=== PATIENT | female | born 1945 | race Caucasian/White ===

== ENCOUNTER 2019-08-11 03:57 | Emergency (ER) | payer MEDICARE ==
[~2019-08-11] VITALS: Ht 157.4 cm; Wt 63.5 kg
[~2019-08-11 03:57] MED LIST: ANAPROX DS550 MG PO; B/P MED; CHOLESTEROL M; HYDROCODONE BIT1 T11 PO; NEURONTIN300 MG PO; ZOFRAN ODT4 MG SL; ZOLOFT50 MG PO; ZOVIRAX800 MG PO
[2019-08-11 05:16] LABS: BASO % 0.2 % (0.0-1.0); EOS % 0.2 % (1.0-4.0); HEMATOCRIT 37.9 % (37.0-47.0); HEMOGLOBIN 11.8 g/dl (12.0-16.0); LYMPH # 0.7 10*3/uL (1.3-4.4); LYMPH % 5.5 % (27.0-41.0); MEAN CORPUSCULAR HGB 24.9 pg (27.0-31.0); MEAN CORPUSCULAR HGB CONC 31.1 g/dl (33.0-37.0); MEAN PLATELET VOLUME 9.5 fl (9.6-12.3); MONO # 0.8 10*3/uL (0.1-1.0); MONO % 6.4 % (3.0-9.0); NEUT # 10.8 10*3/uL (2.3-7.9); NEUT % 87.1 % (47.0-73.0); PLATELET COUNT AUTOMATED 286 10*3/uL (130-400); RED BLOOD COUNT 4.74 10*6/uL (4.10-5.10); RED CELL DISTRI WIDTH 15.7 % (0-14.5); WHITE BLOOD COUNT 12.4 10*3/uL (4.8-10.8)
[2019-08-11 05:31] LABS: ALBUMIN 3.9 gm/dl (3.1-4.5); ALKALINE PHOSPHATASE 84 U/L (45-117); BUN 12 mg/dl (7-24); CHLORIDE 106 mmol/L (98-107); CREATININE 0.67 mg/dL (0.55-1.02); POTASSIUM 3.6 mmol/L (3.5-5.1); SGOT/AST 7 IU/L (3-35); SGPT/ALT 10 U/L (12-78); SODIUM 137 mmol/L (136-145); TOTAL PROTEIN 7.8 gm/dL (6.4-8.2)
[2019-08-11 05:54] LABS: BILIRUBIN NEGATIVE (NEGATIVE); BLOOD 1+ (NEGATIVE); CLARITY SL CLOUDY (CLEAR); COLOR YELLOW (YELLOW); GLUCOSE NEGATIVE (NEGATIVE); KETONE NEGATIVE (NEGATIVE); LEUKO ESTERASE 2+ (NEGATIVE); NITRITE NEGATIVE (NEGATIVE)
[2019-08-11 06:06] LABS: BACTERIA 1+; RBC 21-30 rbc/hpf (0-2); WBC TNTC wbc/hpf (0-5)
[2019-08-11] MEDS ORDERED: MACROBID100 M1 PO (06:20)
[2019-08-11] MEDS ORDERED: TRAMADOL HCL50 MG PO (06:20)
== END 2019-08-11 06:44 | disposition home or self-care (01) ==
LOC: ED 03:57
PROVIDERS: Emergency Medicine
DX: N20.0 Calculus of kidney (principal); K80.20 Calculus of gallbladder without cholecystitis without obstruction; K57.90 Diverticulosis of intestine, part unspecified, without perforation or abscess without bleeding; N39.0 Urinary tract infection, site not specified; Z98.51 Tubal ligation status; Z79.899 Other long term (current) drug therapy

== ENCOUNTER → 2020-05-12 | Outpatient (CLI) | payer MEDICARE ==
[~2020-05-12] MED LIST changes: +MACROBID100 M1 PO; +TRAMADOL HCL50 MG PO
[2020-05-12 10:28] LABS: MEAN CORPUSCULAR HGB 22.4 pg (27.0-31.0); MEAN CORPUSCULAR HGB CONC 29.5 g/dl (33.0-37.0); MEAN PLATELET VOLUME 9.8 fl (9.6-12.3); RED CELL DISTRI WIDTH 17.3 % (0-14.5); WHITE BLOOD COUNT 6.5 10*3/uL (4.8-10.8)
[2020-05-12 10:39] LABS: ALBUMIN 3.9 gm/dl (3.1-4.5); ALKALINE PHOSPHATASE 92 U/L (45-117); BUN 7 mg/dl (7-24); CHLORIDE 107 mmol/L (98-107); CHOLESTEROL 175 mg/dL (<200); CREATININE 0.67 mg/dL (0.55-1.02); HDL CHOLESTEROL 51 mg/dl (40-60); LDL CHOLESTEROL 100 mg/dL (9-159); POTASSIUM 4.2 mmol/L (3.5-5.1); SGOT/AST 17 IU/L (3-35); SGPT/ALT 17 U/L (12-78); SODIUM 139 mmol/L (136-145); TOTAL PROTEIN 7.3 gm/dL (6.4-8.2); TRIGLYCERIDES 119 mg/dl (<150); VLDL CHOLESTEROL 24 mg/dL (6-40)
== END | disposition home or self-care (01) ==
LOC: LAB 09:33
PROVIDERS: Physician Assistant
DX: I10 Essential (primary) hypertension (principal)

== ENCOUNTER → 2020-07-22 | Outpatient (CLI) | payer MEDICARE ==
[2020-07-22 15:37] LABS: HEMATOCRIT 32.7 % (37.0-47.0); MEAN CORPUSCULAR HGB 22.5 pg (27.0-31.0); MEAN PLATELET VOLUME 9.1 fl (9.6-12.3); RED BLOOD COUNT 4.36 10*6/uL (4.10-5.10); RED CELL DISTRI WIDTH 16.7 % (0-14.5); WHITE BLOOD COUNT 7.2 10*3/uL (4.8-10.8)
[2020-07-22 16:04] LABS: IRON 22 ug/dL (50-170); TOTAL IRON BINDING CAPACITY 426 ug/dl (250-450)
== END | disposition home or self-care (01) ==
LOC: LAB 15:23
PROVIDERS: ATTEND Physician Assistant
DX: D50.8 Other iron deficiency anemias (principal)

== ENCOUNTER → 2020-12-04 | Outpatient (CLI) | payer MEDICARE ==
[2020-12-04 11:02] LABS: HEMATOCRIT 27.2 % (37.0-47.0); MEAN CORPUSCULAR HGB CONC 27.6 g/dl (33.0-37.0); RED BLOOD COUNT 3.94 10*6/uL (4.10-5.10); RED CELL DISTRI WIDTH 16.3 % (0-14.5); WHITE BLOOD COUNT 8.6 10*3/uL (4.8-10.8)
[2020-12-04 11:17] LABS: ALBUMIN 3.7 gm/dl (3.1-4.5); ALKALINE PHOSPHATASE 101 U/L (45-117); BUN 9 mg/dl (7-24); CHLORIDE 111 mmol/L (98-107); CREATININE 0.56 mg/dL (0.55-1.02); SGOT/AST 12 IU/L (3-35); SGPT/ALT 16 U/L (12-78); SODIUM 141 mmol/L (136-145)
== END | disposition home or self-care (01) ==
LOC: LAB 10:43
PROVIDERS: ATTEND Physician Assistant
DX: I10 Essential (primary) hypertension (principal); F41.9 Anxiety disorder, unspecified; D50.8 Other iron deficiency anemias

== ENCOUNTER → 2020-12-05 | Outpatient (CLI) | payer MEDICARE ==
[2020-12-05] VITALS (8 sets, daily range): BP systolic 123–154; BP diastolic 62–93
== END | disposition home or self-care (01) ==
LOC: TRNFUSION 00:05
PROVIDERS: ATTEND Physician Assistant
DX: D50.8 Other iron deficiency anemias (principal)

== ENCOUNTER → 2020-12-07 | Outpatient (CLI) | payer MEDICARE | END | disposition home or self-care (01) | LOC: RAD 15:35 | PROVIDERS: ATTEND Physician Assistant | DX: D50.8 Other iron deficiency anemias (principal) ==

== ENCOUNTER 2021-03-08 03:07 | Inpatient (IN) | payer MEDICARE ==
[~2021-03-08] VITALS: Ht 157.4 cm; Wt 60.6 kg
[2021-03-08] VITALS (7 sets, daily range): BP systolic 158–200; BP diastolic 68–100
[2021-03-08 04:12] LABS: BASO % 0.2 % (0.0-1.0); EOS # 0.1 10*3/uL (0.0-0.4); EOS % 0.5 % (1.0-4.0); HEMATOCRIT 44.2 % (37.0-47.0); LYMPH # 0.8 10*3/uL (1.3-4.4); LYMPH % 6.2 % (27.0-41.0); MEAN CELL VOLUME 81.9 fl (81.0-99.0); MEAN CORPUSCULAR HGB CONC 30.5 g/dl (33.0-37.0); MEAN PLATELET VOLUME 8.7 fl (9.6-12.3); MONO # 0.8 10*3/uL (0.1-1.0); MONO % 6.2 % (3.0-9.0); NEUT # 11.6 10*3/uL (2.3-7.9); NEUT % 86.5 % (47.0-73.0); PLATELET COUNT AUTOMATED 268 10*3/uL (130-400); RED CELL DISTRI WIDTH 19.2 % (0-14.5); WHITE BLOOD COUNT 13.5 10*3/uL (4.8-10.8)
[2021-03-08 04:30] LABS: ALKALINE PHOSPHATASE 115 U/L (45-117); BUN 6 mg/dl (7-24); CHLORIDE 108 mmol/L (98-107); CREATININE 0.58 mg/dL (0.55-1.02); POTASSIUM 3.6 mmol/L (3.5-5.1); SGOT/AST 11 IU/L (3-35); SGPT/ALT 13 U/L (12-78); SODIUM 140 mmol/L (136-145); TOTAL PROTEIN 7.5 gm/dL (6.4-8.2)
[2021-03-08 05:05] LABS: BILIRUBIN Negative (Negative); BLOOD 3+ (Negative); CLARITY Turbid (Clear); COLOR Yellow (Yellow); GLUCOSE Negative (Negative); KETONE Negative (Negative); LEUKO ESTERASE 3+ (Negative); NITRITE Negative (Negative); PH 6.5 (4.5-8.0); SPECIFIC GRAVITY <= 1.005 (1.001-1.030); UROBILINOGEN 0.2 E.U./dl (0.0-1.0)
[2021-03-08 05:12] LABS: WBC TNTC wbc/hpf (0-5)
[2021-03-08] MEDS ORDERED: AMLODIPINE BESYL5 MG PO (19:42)
[2021-03-08] MEDS ORDERED: LISINOPRIL20 MG PO (19:43)
[2021-03-08] MEDS ORDERED: LOPRESSOR25 MG PO (19:50)
[2021-03-08] MEDS ORDERED: LOVASTATIN40 MG PO (19:52)
[2021-03-09] VITALS: BP 139/69; BP 150/72
[2021-03-09 02:00] VITALS: BP 138/68
[2021-03-09 06:43] LABS: BASO % 0.7 % (0.0-1.0); EOS # 0.1 10*3/uL (0.0-0.4); EOS % 2.5 % (1.0-4.0); HEMATOCRIT 38.2 % (37.0-47.0); LYMPH # 0.9 10*3/uL (1.3-4.4); LYMPH % 16.8 % (27.0-41.0); MEAN CELL VOLUME 82.3 fl (81.0-99.0); MEAN CORPUSCULAR HGB 25.4 pg (27.0-31.0); MEAN CORPUSCULAR HGB CONC 30.9 g/dl (33.0-37.0); MEAN PLATELET VOLUME 9.1 fl (9.6-12.3); MONO # 0.5 10*3/uL (0.1-1.0); MONO % 8.9 % (3.0-9.0); NEUT % 70.7 % (47.0-73.0); PLATELET COUNT AUTOMATED 269 10*3/uL (130-400); RED BLOOD COUNT 4.64 10*6/uL (4.10-5.10); RED CELL DISTRI WIDTH 19.1 % (0-14.5); WHITE BLOOD COUNT 5.6 10*3/uL (4.8-10.8)
[2021-03-09 06:55] LABS: CHLORIDE 110 mmol/L (98-107); POTASSIUM 3.2 mmol/L (3.5-5.1); SODIUM 142 mmol/L (136-145)
[2021-03-09 07:05] LABS: ALBUMIN 3.4 gm/dl (3.1-4.5); ALKALINE PHOSPHATASE 90 U/L (45-117); BUN 4 mg/dl (7-24); CREATININE 0.47 mg/dL (0.55-1.02); SGOT/AST 8 IU/L (3-35); SGPT/ALT 12 U/L (12-78); TOTAL PROTEIN 6.6 gm/dL (6.4-8.2)
[2021-03-09 08:00] VITALS: BP 170/86
[2021-03-09 16:00] VITALS: BP 153/88
[2021-03-09 20:00] VITALS: BP 164/89
[2021-03-10] VITALS: BP 146/86
[2021-03-10 06:24] LABS: BASO % 0.6 % (0.0-1.0); EOS # 0.2 10*3/uL (0.0-0.4); EOS % 3.4 % (1.0-4.0); HEMATOCRIT 39.4 % (37.0-47.0); LYMPH # 0.9 10*3/uL (1.3-4.4); LYMPH % 17.5 % (27.0-41.0); MEAN CELL VOLUME 81.9 fl (81.0-99.0); MEAN CORPUSCULAR HGB 25.8 pg (27.0-31.0); MEAN CORPUSCULAR HGB CONC 31.5 g/dl (33.0-37.0); MEAN PLATELET VOLUME 8.8 fl (9.6-12.3); MONO # 0.5 10*3/uL (0.1-1.0); MONO % 8.4 % (3.0-9.0); NEUT # 3.8 10*3/uL (2.3-7.9); NEUT % 69.7 % (47.0-73.0); PLATELET COUNT AUTOMATED 275 10*3/uL (130-400); RED BLOOD COUNT 4.81 10*6/uL (4.10-5.10); WHITE BLOOD COUNT 5.4 10*3/uL (4.8-10.8)
[2021-03-10 06:30] LABS: BUN 6 mg/dl (7-24); CHLORIDE 111 mmol/L (98-107); POTASSIUM 3.9 mmol/L (3.5-5.1); SODIUM 141 mmol/L (136-145)
[2021-03-10 08:00] VITALS: BP 109/51; BP 175/93
[2021-03-10] MEDS ORDERED: CIPRO500 MG PO (11:36)
[2021-03-10] MEDS ORDERED: VITAMIN D350 MC2 PO (11:36)
[2021-03-10 12:00] VITALS: BP 171/81
== END 2021-03-10 12:45 | disposition home or self-care (01) | DRG 872 ==
LOC: ED 03:07 → EDHOLD 06:44 → 4E 06:44 → EDHOLD 07:06 → 4E 19:51
PROVIDERS: Emergency Medicine; Internal Medicine; ADMIT Emergency Medicine; ATTEND Emergency Medicine
DX: A41.52 Sepsis due to Pseudomonas (principal); N39.0 Urinary tract infection, site not specified; F41.1 Generalized anxiety disorder; E78.5 Hyperlipidemia, unspecified; R73.9 Hyperglycemia, unspecified; I10 Essential (primary) hypertension; D64.9 Anemia, unspecified; E87.6 Hypokalemia; E83.41 Hypermagnesemia; Z87.440 Personal history of urinary (tract) infections; Z98.51 Tubal ligation status; Z82.49 Family history of ischemic heart disease and other diseases of the circulatory system; Z79.899 Other long term (current) drug therapy

== ENCOUNTER → 2021-12-29 | Outpatient (CLI) | payer MEDICARE ==
[~2021-12-29] MED LIST changes: +AMLODIPINE BESYL5 MG PO; +CIPRO500 MG PO; +LISINOPRIL20 MG PO; +LOPRESSOR25 MG PO; +LOVASTATIN40 MG PO; +VITAMIN D350 MC2 PO
== END | disposition home or self-care (01) ==
LOC: RAD 12:26
PROVIDERS: ATTEND Physician Assistant
DX: R05.9 Cough, unspecified (principal); K44.9 Diaphragmatic hernia without obstruction or gangrene; R52 Pain, unspecified; R09.89 Other specified symptoms and signs involving the circulatory and respiratory systems

== ENCOUNTER → 2022-01-10 | Outpatient (CLI) | payer MEDICARE | END | disposition home or self-care (01) | LOC: RAD 12:50 | PROVIDERS: ATTEND Physician Assistant | DX: J98.4 Other disorders of lung (principal) ==

== ENCOUNTER 2022-06-28 14:46 | Emergency (ER) | payer OTHER, MEDICARE ==
[~2022-06-28] VITALS: Ht 165.1 cm; Wt 63.5 kg
== END 2022-06-28 17:29 | disposition home or self-care (01) ==
LOC: ED 14:46
DX: S60.222A Contusion of left hand, initial encounter (principal); S20.219A Contusion of unspecified front wall of thorax, initial encounter; Z98.51 Tubal ligation status; Z79.899 Other long term (current) drug therapy; V49.88XA Car occupant (driver) (passenger) injured in other specified transport accidents, initial encounter; Y93.89 Activity, other specified; Y92.413 State road as the place of occurrence of the external cause; Y99.9 Unspecified external cause status

== ENCOUNTER 2023-03-30 16:22 | Inpatient (IN) | payer MEDICARE ==
[~2023-03-30] VITALS: Ht 157.5 cm; Wt 55.4 kg
[2023-03-30] VITALS (9 sets, daily range): BP systolic 141–193; BP diastolic 70–91
[2023-03-30 17:41] LABS: HEMATOCRIT 29.8 % (37.0-47.0); MEAN CELL VOLUME 90.6 fl (81.0-99.0); MEAN CORPUSCULAR HGB 30.1 pg (27.0-31.0); MEAN CORPUSCULAR HGB CONC 33.2 g/dl (33.0-37.0); MEAN PLATELET VOLUME 9.3 fl (9.6-12.3); RED BLOOD COUNT 3.29 10*6/uL (4.10-5.10); RED CELL DISTRI WIDTH 20.2 % (0-14.5); WHITE BLOOD COUNT 3.4 10*3/uL (4.8-10.8)
[2023-03-30 18:08] LABS: ACT PARTIAL THROMBO TIME 27.4 SECONDS (20.0-32.1)
[2023-03-30 18:09] LABS: ALKALINE PHOSPHATASE 90 U/L (46-116); BUN 10 mg/dl (9-23); CHLORIDE 105 mmol/L (98-107); MANUAL DIFF REFLEX YES; TOTAL PROTEIN 6.9 gm/dL (6.0-8.0)
[2023-03-30 18:10] LABS: SGPT/ALT < 7 U/L (10-49)
[2023-03-30 18:15] LABS: PLATELET COUNT AUTOMATED 7 10*3/uL (130-400)
[2023-03-30 18:27] LABS: PLATELET SUFFICIENCY LOW (NORMAL); POLYCHROMASIA SLIGHT; TOTAL CELLS COUNTED 100 #CELLS
[2023-03-30 18:28] LABS: OVALOCYTES FEW
[2023-03-30] MEDS ORDERED: LORAZEPAM0.5 M1 PO (18:47)
[2023-03-31] VITALS (8 sets, daily range): BP systolic 148–162; BP diastolic 62–89
[2023-03-31 03:50] LABS: HEMATOCRIT 31.5 % (37.0-47.0); LYMPH # 0.4 10*3/uL (1.3-4.4); LYMPH % 13.9 % (27.0-41.0); MEAN CELL VOLUME 92.6 fl (81.0-99.0); MEAN CORPUSCULAR HGB 30.3 pg (27.0-31.0); MEAN CORPUSCULAR HGB CONC 32.7 g/dl (33.0-37.0); MONO % 0.8 % (3.0-9.0); NEUT # 2.2 10*3/uL (2.3-7.9); NEUT % 84.1 % (47.0-73.0); NUCLEATED RED BLOOD CELL 0.8 % (0.0-0.0); RED CELL DISTRI WIDTH 20.9 % (0-14.5); WHITE BLOOD COUNT 2.6 10*3/uL (4.8-10.8)
[2023-03-31 03:51] LABS: RETICULOCYTE % 2.2 % (0.50-2.50)
[2023-03-31 03:54] LABS: PLATELET COUNT AUTOMATED 82 10*3/uL (130-400)
[2023-03-31 04:06] LABS: ACT PARTIAL THROMBO TIME 26.2 SECONDS (20.0-32.1)
[2023-03-31 04:13] LABS: ALKALINE PHOSPHATASE 97 U/L (46-116); BUN 9 mg/dl (9-23); CHLORIDE 107 mmol/L (98-107); POTASSIUM 3.9 mmol/L (3.4-5.1); TOTAL PROTEIN 7.7 gm/dL (6.0-8.0)
[2023-03-31 04:16] LABS: SGPT/ALT < 7 U/L (10-49)
[2023-04-01] VITALS: BP 144/77
[2023-04-01 06:17] LABS: HEMATOCRIT 30.2 % (37.0-47.0); LYMPH # 0.7 10*3/uL (1.3-4.4); MEAN CELL VOLUME 93.2 fl (81.0-99.0); MEAN CORPUSCULAR HGB 30.2 pg (27.0-31.0); MEAN CORPUSCULAR HGB CONC 32.5 g/dl (33.0-37.0); MONO # 0.3 10*3/uL (0.1-1.0); MONO % 5.9 % (3.0-9.0); NEUT # 3.5 10*3/uL (2.3-7.9); NEUT % 78.4 % (47.0-73.0); PLATELET COUNT AUTOMATED 82 10*3/uL (130-400); RED BLOOD COUNT 3.24 10*6/uL (4.10-5.10); RED CELL DISTRI WIDTH 21.5 % (0-14.5); WHITE BLOOD COUNT 4.4 10*3/uL (4.8-10.8)
[2023-04-01 08:00] VITALS: BP 140/75
[2023-04-01 12:00] VITALS: BP 155/86
[2023-04-01 16:00] VITALS: BP 143/74
[2023-04-01 20:00] VITALS: BP 135/77
[2023-04-02] VITALS: BP 140/73
[2023-04-02 06:31] LABS: LYMPH # 0.7 10*3/uL (1.3-4.4); LYMPH % 19.8 % (27.0-41.0); MEAN CELL VOLUME 92.7 fl (81.0-99.0); MEAN CORPUSCULAR HGB 30.4 pg (27.0-31.0); MEAN CORPUSCULAR HGB CONC 32.8 g/dl (33.0-37.0); MEAN PLATELET VOLUME 9.3 fl (9.6-12.3); MONO # 0.3 10*3/uL (0.1-1.0); MONO % 7.3 % (3.0-9.0); NEUT # 2.6 10*3/uL (2.3-7.9); NEUT % 72.3 % (47.0-73.0); NUCLEATED RED BLOOD CELL 0.6 % (0.0-0.0); RED BLOOD COUNT 3.13 10*6/uL (4.10-5.10); RED CELL DISTRI WIDTH 21.2 % (0-14.5); WHITE BLOOD COUNT 3.5 10*3/uL (4.8-10.8)
[2023-04-02 06:35] LABS: PLATELET COUNT AUTOMATED 53 10*3/uL (130-400)
[2023-04-02 08:00] VITALS: BP 144/72
[2023-04-02 08:09] LABS: TOTAL CELLS COUNTED 100 #CELLS
[2023-04-02 08:10] LABS: OVALOCYTES FEW; PLATELET SUFFICIENCY LOW (NORMAL); POLYCHROMASIA SLIGHT
[2023-04-02 12:00] VITALS: BP 136/59; BP 151/75
[2023-04-02 16:00] VITALS: BP 133/77
[2023-04-02 20:00] VITALS: BP 146/79; BP 152/65
[2023-04-03] VITALS: BP 146/7; BP 146/71
[2023-04-03 06:26] LABS: HEMATOCRIT 29.2 % (37.0-47.0); MEAN CORPUSCULAR HGB 31.2 pg (27.0-31.0); MEAN CORPUSCULAR HGB CONC 34.2 g/dl (33.0-37.0); MEAN PLATELET VOLUME 9.7 fl (9.6-12.3); RED BLOOD COUNT 3.21 10*6/uL (4.10-5.10); RED CELL DISTRI WIDTH 20.4 % (0-14.5); WHITE BLOOD COUNT 3.1 10*3/uL (4.8-10.8)
[2023-04-03 06:57] LABS: PLATELET COUNT AUTOMATED 36 10*3/uL (130-400)
[2023-04-03 06:58] LABS: MANUAL DIFF REFLEX YES
[2023-04-03 08:00] VITALS: BP 147/83
[2023-04-03 08:01] LABS: PLATELET SUFFICIENCY LOW (NORMAL); ROULEAUX MODERATE; TOTAL CELLS COUNTED 100 #CELLS
[2023-04-03 12:00] VITALS: BP 135/57
[2023-04-03 16:00] VITALS: BP 138/62
[2023-04-03 20:00] VITALS: BP 124/59
[2023-04-04] VITALS: BP 127/69
[2023-04-04 06:08] LABS: HEPATITIS B SURFACE AB Reactive (.); HEPATITIS B SURFACE AG Negative (Negative)
[2023-04-04 06:13] LABS: BUN 16 mg/dl (9-23); CHLORIDE 105 mmol/L (98-107); POTASSIUM 3.7 mmol/L (3.4-5.1)
[2023-04-04 06:20] LABS: HEMATOCRIT 29.9 % (37.0-47.0); MEAN CELL VOLUME 91.4 fl (81.0-99.0); MEAN CORPUSCULAR HGB 30.6 pg (27.0-31.0); MEAN CORPUSCULAR HGB CONC 33.4 g/dl (33.0-37.0); MEAN PLATELET VOLUME 10.5 fl (9.6-12.3); RED BLOOD COUNT 3.27 10*6/uL (4.10-5.10); RED CELL DISTRI WIDTH 20.2 % (0-14.5); WHITE BLOOD COUNT 3.6 10*3/uL (4.8-10.8)
[2023-04-04 06:29] LABS: MANUAL DIFF REFLEX YES; PLATELET COUNT AUTOMATED 20 10*3/uL (130-400)
[2023-04-04 07:10] LABS: OVALOCYTES FEW; POLYCHROMASIA SLIGHT; TOTAL CELLS COUNTED 100 #CELLS
[2023-04-04 07:11] LABS: PLATELET SUFFICIENCY LOW (NORMAL)
[2023-04-04 08:00] VITALS: BP 136/74
[2023-04-04 12:00] VITALS: BP 113/65
[2023-04-04 16:00] VITALS: BP 121/72
[2023-04-04 20:00] VITALS: BP 114/64
[2023-04-05] VITALS: BP 122/61
[2023-04-05 00:33] LABS: ALKALINE PHOSPHATASE 72 U/L (46-116); LDH 133 U/L (120-246); SGPT/ALT < 7 U/L (10-49)
[2023-04-05 06:34] LABS: HEMATOCRIT 29.3 % (37.0-47.0); MEAN CELL VOLUME 91.8 fl (81.0-99.0); MEAN CORPUSCULAR HGB 30.4 pg (27.0-31.0); MEAN CORPUSCULAR HGB CONC 33.1 g/dl (33.0-37.0); MEAN PLATELET VOLUME 10.4 fl (9.6-12.3); RED BLOOD COUNT 3.19 10*6/uL (4.10-5.10); RED CELL DISTRI WIDTH 19.6 % (0-14.5); WHITE BLOOD COUNT 2.1 10*3/uL (4.8-10.8)
[2023-04-05 06:37] LABS: MANUAL DIFF REFLEX YES
[2023-04-05 06:39] LABS: PLATELET COUNT AUTOMATED 11 10*3/uL (130-400)
[2023-04-05 06:58] LABS: BUN 14 mg/dl (9-23); CHLORIDE 105 mmol/L (98-107); POTASSIUM 3.9 mmol/L (3.4-5.1)
[2023-04-05 07:25] LABS: OVALOCYTES FEW; PLATELET SUFFICIENCY LOW (NORMAL); POLYCHROMASIA SLIGHT; ROULEAUX SLIGHT; SCHISTOCYTES FEW; TOTAL CELLS COUNTED 100 #CELLS
[2023-04-05 08:00] VITALS: BP 111/64
[2023-04-05 12:00] VITALS: BP 119/71
[2023-04-05 16:00] VITALS: BP 135/70
[2023-04-05 20:00] VITALS: BP 110/56
[2023-04-06] VITALS (12 sets, daily range): BP systolic 116–157; BP diastolic 47–85
[2023-04-06 07:31] LABS: HEMATOCRIT 23.8 % (37.0-47.0); MEAN CELL VOLUME 92.2 fl (81.0-99.0); MEAN CORPUSCULAR HGB 31.8 pg (27.0-31.0); MEAN CORPUSCULAR HGB CONC 34.5 g/dl (33.0-37.0); RED BLOOD COUNT 2.58 10*6/uL (4.10-5.10); RED CELL DISTRI WIDTH 19.6 % (0-14.5)
[2023-04-06 07:32] LABS: MANUAL DIFF REFLEX YES
[2023-04-06 07:33] LABS: WHITE BLOOD COUNT 1.5 10*3/uL (4.8-10.8)
[2023-04-06 07:34] LABS: PLATELET COUNT AUTOMATED 5 10*3/uL (130-400)
[2023-04-06 07:55] LABS: ATYPICAL LYMPHS 1 % (0-0); TOTAL CELLS COUNTED 100 #CELLS
[2023-04-06 07:56] LABS: OVALOCYTES FEW; PLATELET SUFFICIENCY LOW (NORMAL); POLYCHROMASIA SLIGHT; ROULEAUX SLIGHT
[2023-04-06 19:23] LABS: HEMATOCRIT 24.1 % (37.0-47.0); MEAN CELL VOLUME 90.3 fl (81.0-99.0); MEAN CORPUSCULAR HGB 31.5 pg (27.0-31.0); MEAN CORPUSCULAR HGB CONC 34.9 g/dl (33.0-37.0); RED BLOOD COUNT 2.67 10*6/uL (4.10-5.10); RED CELL DISTRI WIDTH 18.9 % (0-14.5)
[2023-04-06 19:26] LABS: MANUAL DIFF REFLEX YES; PLATELET COUNT AUTOMATED 42 10*3/uL (130-400)
[2023-04-06 19:57] LABS: PLATELET SUFFICIENCY LOW (NORMAL); TOTAL CELLS COUNTED 100 #CELLS; TOXIC GRANULATION SLIGHT
[2023-04-06 19:58] LABS: ROULEAUX SLIGHT
[2023-04-06 20:00] LABS: WHITE BLOOD COUNT 1.5 10*3/uL (4.8-10.8)
[2023-04-07] VITALS: BP 134/66
[2023-04-07 07:33] LABS: HEMATOCRIT 23.6 % (37.0-47.0); MEAN CELL VOLUME 91.8 fl (81.0-99.0); MEAN CORPUSCULAR HGB 31.5 pg (27.0-31.0); MEAN CORPUSCULAR HGB CONC 34.3 g/dl (33.0-37.0); MEAN PLATELET VOLUME 9.6 fl (9.6-12.3); PLATELET COUNT AUTOMATED 32 10*3/uL (130-400); RED BLOOD COUNT 2.57 10*6/uL (4.10-5.10); RED CELL DISTRI WIDTH 18.9 % (0-14.5)
[2023-04-07 07:37] LABS: MANUAL DIFF REFLEX YES
[2023-04-07 07:38] LABS: WHITE BLOOD COUNT 1.2 10*3/uL (4.8-10.8)
[2023-04-07 07:53] LABS: TOTAL CELLS COUNTED 100 #CELLS
[2023-04-07 07:54] LABS: OVALOCYTES FEW; PLATELET SUFFICIENCY LOW (NORMAL); POLYCHROMASIA SLIGHT; ROULEAUX SLIGHT
[2023-04-07 08:00] VITALS: BP 122/62
[2023-04-07 08:30] LABS: BUN 12 mg/dl (9-23); CHLORIDE 103 mmol/L (98-107)
[2023-04-07 12:00] VITALS: BP 135/77
[2023-04-07 17:25] LABS: HEMATOCRIT 25.3 % (37.0-47.0); MEAN CELL VOLUME 91.7 fl (81.0-99.0); MEAN CORPUSCULAR HGB 31.5 pg (27.0-31.0); MEAN CORPUSCULAR HGB CONC 34.4 g/dl (33.0-37.0); MEAN PLATELET VOLUME 10.8 fl (9.6-12.3); RED BLOOD COUNT 2.76 10*6/uL (4.10-5.10); RED CELL DISTRI WIDTH 18.7 % (0-14.5)
[2023-04-07 17:59] LABS: PLATELET SUFFICIENCY LOW (NORMAL); TOTAL CELLS COUNTED 100 #CELLS
[2023-04-07 18:00] LABS: MANUAL DIFF REFLEX YES
[2023-04-07 18:04] LABS: PLATELET COUNT AUTOMATED 29 10*3/uL (130-400); WHITE BLOOD COUNT 1.7 10*3/uL (4.8-10.8)
[2023-04-07 18:25] VITALS: BP 137/70
[2023-04-07 20:00] VITALS: BP 128/98
[2023-04-08] VITALS: BP 142/86
[2023-04-08 06:14] LABS: HEMATOCRIT 23.4 % (37.0-47.0); MEAN CELL VOLUME 93.6 fl (81.0-99.0); MEAN CORPUSCULAR HGB CONC 34.2 g/dl (33.0-37.0); MEAN PLATELET VOLUME 11.6 fl (9.6-12.3)
[2023-04-08 06:20] LABS: MANUAL DIFF REFLEX YES
[2023-04-08 06:21] LABS: PLATELET COUNT AUTOMATED 16 10*3/uL (130-400); WHITE BLOOD COUNT 1.7 10*3/uL (4.8-10.8)
[2023-04-08 07:42] LABS: OVALOCYTES FEW; PLATELET SUFFICIENCY LOW (NORMAL); POLYCHROMASIA SLIGHT; TOTAL CELLS COUNTED 100 #CELLS
[2023-04-08 07:43] LABS: BURR CELLS FEW
[2023-04-08 07:44] LABS: ROULEAUX SLIGHT
[2023-04-08 08:00] VITALS: BP 135/65
[2023-04-10 13:07] LABS: GRANULOCYTES NO
[2023-04-10 16:07] LABS: PARVOVIRUS B19 IGG 6.6 index (0.0-0.8); PARVOVIRUS B19 IGM 0.2 index (0.0-0.8)
== END 2023-04-08 09:52 | disposition short-term general hospital (02) | DRG 813 ==
LOC: ED 16:22 → EDHOLD 17:21 → 4E 17:21 → EDHOLD 17:54 → 4E 03-31 13:15 → 5E 04-06 11:04
PROVIDERS: Emergency Medicine; Family Medicine; Internal Medicine; Registered Nurse; Student in an Organized Health Care Education/Training Program; ADMIT Internal Medicine; ATTEND Internal Medicine
PROC: 30233R1 Transfusion of Nonautologous Platelets into Peripheral Vein, Percutaneous Approach (ICD-10-PCS; principal; 2023-03-30)
PROC: 30233S1 Transfusion of Nonautologous Globulin into Peripheral Vein, Percutaneous Approach (ICD-10-PCS; 2023-04-02)
DX: D69.3 Immune thrombocytopenic purpura (principal); D61.818 Other pancytopenia; K62.5 Hemorrhage of anus and rectum; I16.0 Hypertensive urgency; R73.9 Hyperglycemia, unspecified; N93.9 Abnormal uterine and vaginal bleeding, unspecified; I10 Essential (primary) hypertension; E78.5 Hyperlipidemia, unspecified; Z82.49 Family history of ischemic heart disease and other diseases of the circulatory system; F41.1 Generalized anxiety disorder; Z79.899 Other long term (current) drug therapy

== ENCOUNTER 2023-05-16 12:24 | Emergency (ER) | payer MEDICARE ==
[~2023-05-16] VITALS: Ht 157.4 cm; Wt 53.5 kg
[~2023-05-16 12:24] MED LIST changes: +LORAZEPAM0.5 M1 PO
[2023-05-16 14:29] LABS: HEMATOCRIT 22.8 % (37.0-47.0); MEAN CELL VOLUME 88.7 fl (81.0-99.0); MEAN CORPUSCULAR HGB CONC 33.8 g/dl (33.0-37.0); NUCLEATED RED BLOOD CELL 1.2 % (0.0-0.0); RED BLOOD COUNT 2.57 10*6/uL (4.10-5.10); RED CELL DISTRI WIDTH 19.5 % (0-14.5)
[2023-05-16 14:56] LABS: PLATELET COUNT AUTOMATED 1 10*3/uL (130-400)
[2023-05-16 14:57] LABS: MANUAL DIFF REFLEX YES; WHITE BLOOD COUNT 1.6 10*3/uL (4.8-10.8)
[2023-05-16 15:01] LABS: OVALOCYTES FEW; PLATELET SUFFICIENCY LOW (NORMAL); TOTAL CELLS COUNTED 100 #CELLS
[2023-05-16 15:09] LABS: ALKALINE PHOSPHATASE 67 U/L (46-116); BUN 28 mg/dl (9-23); CHLORIDE 103 mmol/L (98-107); POTASSIUM 4.2 mmol/L (3.4-5.1); SGPT/ALT 12 U/L (10-49); TOTAL PROTEIN 5.7 gm/dL (6.0-8.0)
== END 2023-05-17 19:31 | disposition short-term general hospital (02) ==
LOC: ED 12:24
PROVIDERS: Internal Medicine
DX: D69.6 Thrombocytopenia, unspecified (principal); I10 Essential (primary) hypertension; Z98.890 Other specified postprocedural states; Z98.51 Tubal ligation status

== ENCOUNTER → 2023-06-30 | Outpatient (CLI) | payer MEDICARE | END | disposition home or self-care (01) | LOC: LAB 10:44 | PROVIDERS: ATTEND Physician Assistant | DX: D61.9 Aplastic anemia, unspecified (principal); R78.81 Bacteremia ==

== ENCOUNTER 2023-10-17 13:39 | Emergency (ER) | payer MEDICARE ==
[~2023-10-17] VITALS: Ht 154.9 cm; Wt 45.4 kg
== END 2023-10-17 15:33 | disposition home or self-care (01) ==
LOC: ED 13:39
DX: R58 Hemorrhage, not elsewhere classified (principal); D64.9 Anemia, unspecified; E78.5 Hyperlipidemia, unspecified; I10 Essential (primary) hypertension; R73.9 Hyperglycemia, unspecified; Z98.890 Other specified postprocedural states; Z98.51 Tubal ligation status

== ENCOUNTER → 2024-01-26 | Outpatient (CLI) | payer MEDICARE | END | disposition home or self-care (01) | LOC: RESCLI 01:53 | PROVIDERS: ATTEND Internal Medicine | DX: D69.6 Thrombocytopenia, unspecified (principal); E78.00 Pure hypercholesterolemia, unspecified; I10 Essential (primary) hypertension; F41.9 Anxiety disorder, unspecified; Z79.899 Other long term (current) drug therapy ==

== ENCOUNTER → 2025-02-19 | Outpatient (CLI) | payer MEDICARE | LOC: RESCLI 15:05 | PROVIDERS: ATTEND Internal Medicine | DX: D69.6 Thrombocytopenia, unspecified (principal); I10 Essential (primary) hypertension; F41.9 Anxiety disorder, unspecified; F32.9 Major depressive disorder, single episode, unspecified; J30.2 Other seasonal allergic rhinitis ==

== ENCOUNTER 2025-08-31 09:28 | Emergency (ER) | payer MEDICARE ==
[~2025-08-31] VITALS: Ht 157.4 cm; Wt 54.4 kg
[2025-08-31] MEDS ORDERED: Ondansetron Hydrochloride 4 MG/2 ML VIAL IV ONE (09:55)
[2025-08-31] MEDS ORDERED: IOHEXOL 300 MG/ML 100 ML VIAL IV ONE (10:05)
[2025-08-31 10:19] LABS: BASO # 0.0 10*3/uL (0.0-0.1); BASO % 0.3 % (0.0-1.0); EOS # 0.0 10*3/uL (0.0-0.4); EOS % 0.1 % (1.0-4.0); MEAN CELL VOLUME 90.5 fl (81.0-99.0); MEAN CORPUSCULAR HGB 30.8 pg (27.0-31.0); MEAN PLATELET VOLUME 8.1 fl (9.6-12.3); MONO # 0.5 10*3/uL (0.1-1.0); MONO % 6.4 % (3.0-9.0); NEUT # 5.9 10*3/uL (2.3-7.9); NEUT % 82.0 % (47.0-73.0); NUCLEATED RED BLOOD CELL 0.0 % (0.0-0.0); NUCLEATED RED BLOOD CELL 0.0 10*3/uL (0.0-0.0); PLATELET COUNT AUTOMATED 128 10*3/uL (130-400); RED CELL DISTRI WIDTH 14.8 % (0-14.5)
[2025-08-31 10:28] LABS: BILIRUBIN Negative (Negative); BLOOD Trace-Intact (Negative); CLARITY Cloudy (Clear); COLOR Yellow (Yellow); KETONE Negative (Negative); LEUKO ESTERASE 1+ (Negative); NITRITE Positive (Negative); PH 7.5 (4.5-8.0); SPECIFIC GRAVITY 1.010 (1.001-1.030); UROBILINOGEN 1.0 E.U./dl (0.0-1.0)
[2025-08-31 10:37] LABS: BACTERIA 4+
[2025-08-31 10:38] LABS: BUN 8 mg/dl (9-23); SGPT/ALT 12 U/L (5-49)
[2025-08-31] MEDS ORDERED: AMOXICILLIN 500 MG CAP PO ONE (11:15)
[2025-08-31] MEDS ORDERED: AMOXICILLIN500 M2 PO (12:04)
== END 2025-08-31 12:20 | disposition home or self-care (01) ==
LOC: ED 09:28
PROVIDERS: Student in an Organized Health Care Education/Training Program
DX: N39.0 Urinary tract infection, site not specified (principal); I10 Essential (primary) hypertension